=== PATIENT | female | born 1985 | race Two or more races ===

== ENCOUNTER 2017-05-18 15:44 | Outpatient (CLI) | payer OTHER ==
[~2017-05-18 15:44] MED LIST: MOTRIN800 MG PO
[2017-05-18] MEDS ORDERED: CYCLOBENZAPRINE10 MG PO (19:04)
== END 2017-05-18 21:19 | disposition home or self-care (01) ==
LOC: OBS/DEL 15:44
DX: O60.03 Preterm labor without delivery, third trimester (principal); O26.893 Other specified pregnancy related conditions, third trimester; M54.9 Dorsalgia, unspecified; M62.830 Muscle spasm of back; Z34.83 Encounter for supervision of other normal pregnancy, third trimester

== ENCOUNTER 2017-07-09 12:20 | Inpatient (IN) | payer OTHER ==
[~2017-07-09] VITALS: Ht 160 cm; Wt 97.1 kg
[~2017-07-09 12:20] MED LIST changes: +CYCLOBENZAPRINE10 MG PO
[2017-07-09] MEDS ORDERED: VALTREX1000 MG PO (15:14)
[2017-07-09] MEDS ORDERED: PRENATAL 19 TA1 EAC1 PO (15:14)
== END 2017-07-12 16:12 | DRG 766 ==
LOC: LDR 12:20 → OB/GYN 12:20
PROVIDERS: Obstetrics & Gynecology
PROC: 3E033VJ Introduction of Other Hormone into Peripheral Vein, Percutaneous Approach (ICD-10-PCS; 2017-07-09)
PROC: 4A1HXCZ Monitoring of Products of Conception, Cardiac Rate, External Approach (ICD-10-PCS; 2017-07-09)
PROC: 10D00Z1 Extraction of Products of Conception, Low, Open Approach (ICD-10-PCS; principal; 2017-07-09 19:00)
DX: O33.9 Maternal care for disproportion, unspecified (principal); Z3A.38 38 weeks gestation of pregnancy; Z37.0 Single live birth

== ENCOUNTER 2018-08-20 20:52 | Emergency (ER) | payer OTHER ==
[~2018-08-20] VITALS: Ht 167.6 cm; Wt 93.4 kg
[~2018-08-20 20:52] MED LIST changes: +PRENATAL 19 TA1 EAC1 PO; +VALTREX1000 MG PO
[2018-08-21] MEDS ORDERED: LEVSIN/SL0.125 MG SL (01:10)
[2018-08-21] MEDS ORDERED: PEPCID AC20 MG PO (01:10)
[2018-08-21] MEDS ORDERED: KETO10TA2 PO (01:10)
== END 2018-08-21 01:13 | disposition home or self-care (01) ==
LOC: ER 20:52
DX: K82.8 Other specified diseases of gallbladder (principal); R10.13 Epigastric pain

== ENCOUNTER 2019-11-21 06:45 | Emergency (ER) | payer OTHER ==
[~2019-11-21] VITALS: Ht 160 cm; Wt 93.4 kg
[~2019-11-21 06:45] MED LIST changes: +KETO10TA2 PO; +LEVSIN/SL0.125 MG SL; +PEPCID AC20 MG PO
== END 2019-11-21 11:37 | disposition home or self-care (01) ==
LOC: ER 06:45
DX: R10.13 Epigastric pain (principal); R10.11 Right upper quadrant pain

== ENCOUNTER 2023-03-17 07:20 | Emergency (ER) | payer OTHER ==
[~2023-03-17] VITALS: Ht 167.6 cm; Wt 90.7 kg
== END 2023-03-17 12:51 | disposition home or self-care (01) ==
LOC: ER 07:20
DX: M94.0 Chondrocostal junction syndrome [Tietze] (principal)